=== PATIENT | female | born 1985 | race Caucasian/White ===

== ENCOUNTER 2019-08-16 17:03 | Emergency (ER) | payer OTHER ==
[~2019-08-16] VITALS: Ht 160 cm; Wt 67.1 kg
[2019-08-16 17:23] VITALS: Ht 160 cm; Wt 67.1 kg
[2019-08-16 19:03] VITALS: BP 122/72
== END 2019-08-16 19:03 | disposition home or self-care (01) ==
LOC: ED 17:03
DX: S01.81XA Laceration without foreign body of other part of head, initial encounter (principal); S09.8XXA Other specified injuries of head, initial encounter; W21.07XA Struck by softball, initial encounter; Y93.89 Activity, other specified; Y92.89 Other specified places as the place of occurrence of the external cause; Y99.8 Other external cause status
CPT/HCPCS: J2001